=== PATIENT | male | born 2005 | race Caucasian/White ===

== ENCOUNTER 2024-05-13 20:02 | Emergency (ER) | payer OTHER ==
[~2024-05-13] VITALS: Ht 175.3 cm; Wt 77.6 kg
[~2024-05-13 20:02] MED LIST: ASTHMA INHALER
[2024-05-13 20:06] VITALS: BP 143/95; PULSE 82; RESP 16; TEMP 97.8; O2SAT 99
== END 2024-05-13 20:30 | disposition left against medical advice (07) ==
LOC: MED 20:02
DX: R42 Dizziness and giddiness (principal); R06.02 Shortness of breath; Z53.21 Procedure and treatment not carried out due to patient leaving prior to being seen by health care provider